=== PATIENT | female | born 1980 | race Two or more races ===

== ENCOUNTER → 2019-01-08 | Outpatient (CLI) | payer OTHER | END | disposition home or self-care (01) | LOC: PRENATAL 14:00 | DX: O99.212 Obesity complicating pregnancy, second trimester (principal); O09.522 Supervision of elderly multigravida, second trimester; O34.211 Maternal care for low transverse scar from previous cesarean delivery ==

== ENCOUNTER 2019-04-18 17:22 | Inpatient (IN) | payer OTHER ==
[~2019-04-18] VITALS: Ht 149.9 cm; Wt 99.8 kg
[2019-04-18] MEDS ORDERED: ASPIR 8181 MG PO (22:23)
[2019-04-18] MEDS ORDERED: PRENATAL TABLE1 EACH PO ×2 (22:24→22:26)
[2019-04-18] MEDS ORDERED: NASAL MIST126 ML (22:24)
== END 2019-04-19 17:27 | disposition home or self-care (01) | DRG 833 ==
LOC: LDR 17:22
PROVIDERS: ADMIT Obstetrics & Gynecology
DX: O13.3 Gestational [pregnancy-induced] hypertension without significant proteinuria, third trimester (principal); O34.219 Maternal care for unspecified type scar from previous cesarean delivery; Z3A.36 36 weeks gestation of pregnancy

== ENCOUNTER 2019-04-24 18:15 | Inpatient (IN) | payer OTHER ==
[~2019-04-24] VITALS: Ht 149.9 cm; Wt 2.7 kg
[~2019-04-24 18:15] MED LIST: ASPIR 8181 MG PO; NASAL MIST126 ML; PRENATAL TABLE1 EACH PO
[2019-04-27] MEDS ORDERED: Tylenol Extra Streng PO (13:51)
[2019-04-27] MEDS ORDERED: PRENATAL TABLE1 EACH PO (13:51)
[2019-04-27] MEDS ORDERED: DOCUSATE SODIU100 MG PO (13:51)
[2019-04-27] MEDS ORDERED: IBUPROFEN800 MG PO (13:51)
== END 2019-04-27 14:51 | disposition home or self-care (01) | DRG 788 ==
LOC: LDR 18:15 → OB/GYN 18:15
PROVIDERS: ADMIT Obstetrics & Gynecology
PROC: 4A1HXCZ Monitoring of Products of Conception, Cardiac Rate, External Approach (ICD-10-PCS; 2019-04-24)
PROC: 10D00Z1 Extraction of Products of Conception, Low, Open Approach (ICD-10-PCS; principal; 2019-04-24 20:00)
DX: O82 Encounter for cesarean delivery without indication (principal); O14.04 Mild to moderate pre-eclampsia, complicating childbirth; Z3A.36 36 weeks gestation of pregnancy; Z37.0 Single live birth

== ENCOUNTER 2022-02-16 12:43 | Outpatient (CLI) | payer OTHER ==
[~2022-02-16 12:43] MED LIST changes: +DOCUSATE SODIU100 MG PO; +IBUPROFEN800 MG PO; +Tylenol Extra Streng PO
== END 2022-02-16 12:46 | disposition home or self-care (01) ==
LOC: LAB 12:43
PROVIDERS: ATTEND Obstetrics & Gynecology
DX: Z20.818 Contact with and (suspected) exposure to other bacterial communicable diseases (principal); Z20.828 Contact with and (suspected) exposure to other viral communicable diseases